=== PATIENT | female | born 1965 | race Caucasian/White ===

== ENCOUNTER → 2024-08-03 | Day surgery (SDC) | payer OTHER ==
[~2024-08-03] VITALS: Ht 144.8 cm; Wt 62.7 kg
[~2024-08-03] MED LIST: BALANCED SALT 15 ML OPHTHALMIC IRRIG.SOLN ONE; CYCLOPENTOLATE HCL 1% 2 ML OPHTHALMIC SOLUTION ONE; FentaNYL CITRATE PF 100 MCG/2 ML VIAL ONE; HYALURONATE SOD 8.5MG/0.85ML 10 MG/ML SYRINGE IO ONE; HYALURONATE SOD/CHONDROITIN SOD 0.5 ML VIAL IO ONE; KETOROLAC TROMETHAMINE 0.5% 5 ML OPHTHALMIC SOLUTION ONE; MIDAZOLAM HCL 2 MG/2 ML VIAL ONE; MOXIFLOXACIN HCL 0.5% 3 ML OPHTHALMIC SOLUTION ONE; PHENYLEPHRINE HCL 2.5% 2 ML OPHTHALMIC SOLUTION ONE; PrednisoLONE ACETATE 1% 5 ML OPHTHALMIC SUSPENSION ONE; RINGERS SOLUTION,LACTATED 500 ML IV ONE; TETRACAINE HCL/PF 0.5% 4 ML OPHTHALMIC SOLUTION ONE; TROPICAMIDE 1% 2 ML OPHTHALMIC SOLUTION ONE
[2024-08-03] MEDS: KETOROLAC TROMETHAMINE 0.5% 5 ML OPHTHALMIC SOLUTION OS SCH (07:19)
[2024-08-03] MEDS: PROPARACAINE HCL 0.5% 15 ML OPHTHALMIC SOLUTION OS ONE (07:19)
[2024-08-03] MEDS: CYCLOPENTOLATE HCL 1% 2 ML OPHTHALMIC SOLUTION OS SCH (07:19)
[2024-08-03] MEDS: PHENYLEPHRINE HCL 2.5% 2 ML OPHTHALMIC SOLUTION OS SCH (07:20)
[2024-08-03] MEDS: TETRACAINE HCL/PF 0.5% 4 ML OPHTHALMIC SOLUTION OS SCH (07:20)
[2024-08-03] MEDS: TROPICAMIDE 1% 2 ML OPHTHALMIC SOLUTION OS SCH (07:20)
[2024-08-03] MEDS: MOXIFLOXACIN HCL 0.5% 3 ML OPHTHALMIC SOLUTION OS SCH (07:20)
[2024-08-03] MEDS: TETRACAINE HCL/PF 0.5% 4 ML OPHTHALMIC SOLUTION OS ONE (07:27)
[2024-08-03] MEDS: RINGERS SOLUTION,LACTATED 500 ML IV ONE (07:36)
[2024-08-03] MEDS: LIDOCAINE/PF 1% 2 ML VIAL ONE (08:10)
[2024-08-03] MEDS: PROPARACAINE HCL 0.5% 15 ML OPHTHALMIC SOLUTION ONE (08:10)
[2024-08-03] MEDS: POVIDONE-IODINE 5% 30 ML OPHTHALMIC SOLUTION ONE (08:10)
[2024-08-03] MEDS: EPINEPHrine 1:1,000 [1 MG/ML] VIAL ONE (08:10)
[2024-08-03] MEDS: BALANCED SALT 15 ML OPHTHALMIC IRRIG.SOLN ONE (08:10)
[2024-08-03] MEDS: NEOMYCIN/POLYMYXIN B/DEXAMETH 3.5 GM OPHTHALMIC OINTMENT ONE (08:10)
== END | disposition still patient (30) ==
LOC: SURGERY 06:04
PROVIDERS: ATTEND Ophthalmology
DX: H25.12 Age-related nuclear cataract, left eye (principal); F17.210 Nicotine dependence, cigarettes, uncomplicated; G89.29 Other chronic pain; Z88.1 Allergy status to other antibiotic agents; Z98.890 Other specified postprocedural states; Z90.49 Acquired absence of other specified parts of digestive tract; M06.9 Rheumatoid arthritis, unspecified; Z79.899 Other long term (current) drug therapy
CPT/HCPCS: 66984; 93005; J0171; J3010; J3490; J2250; J7120; V2632

== ENCOUNTER 2025-04-05 05:18 | Day surgery (SDC) | payer OTHER ==
[~2025-04-05] VITALS: Ht 144.8 cm; Wt 63.6 kg
[~2025-04-05 05:18] MED LIST changes: -BALANCED SALT 15 ML OPHTHALMIC IRRIG.SOLN ONE; -FentaNYL CITRATE PF 100 MCG/2 ML VIAL ONE; -HYALURONATE SOD 8.5MG/0.85ML 10 MG/ML SYRINGE IO ONE; -HYALURONATE SOD/CHONDROITIN SOD 0.5 ML VIAL IO ONE; -MIDAZOLAM HCL 2 MG/2 ML VIAL ONE; -PrednisoLONE ACETATE 1% 5 ML OPHTHALMIC SUSPENSION ONE; -TROPICAMIDE 1% 2 ML OPHTHALMIC SOLUTION ONE; +TROPICAMIDE 1% 3 ML OPHTHALMIC SOLUTION ONE
[2025-04-05] MEDS ORDERED: FURO20TA4 PO (05:45)
[2025-04-05] MEDS ORDERED: LIDOCAINE/PF 1% 2 ML VIAL ONE (06:09)
[2025-04-05] MEDS: RINGERS SOLUTION,LACTATED 500 ML IV ONE (06:16)
[2025-04-05] MEDS: KETOROLAC TROMETHAMINE 0.5% 5 ML OPHTHALMIC SOLUTION OD SCH (06:17)
[2025-04-05] MEDS: TETRACAINE HCL/PF 0.5% 4 ML OPHTHALMIC SOLUTION OD SCH (06:17)
[2025-04-05] MEDS: MOXIFLOXACIN HCL 0.5% 3 ML OPHTHALMIC SOLUTION OD SCH (06:17)
[2025-04-05] MEDS: PHENYLEPHRINE HCL 2.5% 2 ML OPHTHALMIC SOLUTION OD SCH (06:17)
[2025-04-05] MEDS: TROPICAMIDE 1% 3 ML OPHTHALMIC SOLUTION OD SCH (06:17)
[2025-04-05] MEDS: CYCLOPENTOLATE HCL 1% 2 ML OPHTHALMIC SOLUTION OD SCH (06:17)
[2025-04-05] MEDS: PROPARACAINE HCL 0.5% 15 ML OPHTHALMIC SOLUTION OD ONE (06:18)
[2025-04-05] MEDS: TETRACAINE HCL/PF 0.5% 4 ML OPHTHALMIC SOLUTION OD ONE (06:36)
[2025-04-05] MEDS: EPINEPHrine 1:1,000 [1 MG/ML] VIAL ONE (08:10)
[2025-04-05] MEDS: POVIDONE-IODINE 5% 30 ML OPHTHALMIC SOLUTION ONE (08:10)
[2025-04-05] MEDS: BALANCED SALT 15 ML OPHTHALMIC IRRIG.SOLN ONE (08:10)
[2025-04-05] MEDS: NEOMYCIN/POLYMYXIN B/DEXAMETH 3.5 GM OPHTHALMIC OINTMENT ONE (08:15)
[2025-04-05] MEDS: PrednisoLONE ACETATE 1% 5 ML OPHTHALMIC SUSPENSION ONE (08:15)
[2025-04-05] MEDS ORDERED: FentaNYL CITRATE PF 100 MCG/2 ML VIAL ONE (12:00)
[2025-04-05] MEDS ORDERED: MIDAZOLAM HCL 2 MG/2 ML VIAL ONE (12:00)
[2025-04-05] MEDS ORDERED: HYALURONATE SOD 8.5MG/0.85ML 10 MG/ML SYRINGE IO ONE (16:16)
== END 2025-04-05 09:25 | disposition home or self-care (01) ==
LOC: SDS 05:18
PROVIDERS: ATTEND Ophthalmology
DX: H25.11 Age-related nuclear cataract, right eye (principal); E66.3 Overweight; F17.210 Nicotine dependence, cigarettes, uncomplicated; Z79.899 Other long term (current) drug therapy; Z90.49 Acquired absence of other specified parts of digestive tract; Z98.41 Cataract extraction status, right eye; Z98.891 History of uterine scar from previous surgery; Z68.30 Body mass index [BMI] 30.0-30.9, adult
CPT/HCPCS: 66982; 93005; J0169; J3010; J3490; J2250; J7120; V2632